=== PATIENT | male | born 1955 | race Hispanic/Latino ===

== ENCOUNTER → 2024-11-23 | Outpatient (REF) | payer MEDICARE ==
[~2024-11-23] MED LIST: FLOMAX0.4 MG PO; IBUPROFEN200 MG PO; LISINOPRIL10 MG PO; METFORMIN HCL850 MG PO; METHOCARBAMOL750 MG PO
== END ==
LOC: US 09:30
PROVIDERS: ATTEND Internal Medicine Gastroenterology
DX: R74.8 Abnormal levels of other serum enzymes (principal)
CPT/HCPCS: 76700